=== PATIENT | female | born 1960 | race African-American/Black ===

== ENCOUNTER 2017-11-20 18:15 | Emergency (ER) | payer MEDICAID ==
[~2017-11-20] VITALS: Ht 172.7 cm; Wt 72.0 kg
[2017-11-20 19:03] LABS: CLARITY URINE CLEAR (CLEAR); COLOR URINE YELLOW (YELLOW); KETONES URINE NEGATIVE (NEGATIVE); LEUKOCYTE ESTERASE URINE NEGATIVE (NEGATIVE); NITRITE URINE NEGATIVE (NEGATIVE); OCCULT BLOOD URINE NEGATIVE (NEGATIVE); PH URINE 6.5 (4.5-8.0); PROTEIN URINE NEGATIVE (NEGATIVE); SPECIFIC GRAVITY URINE 1.011 (1.005-1.030); UROBILINOGEN URINE 0.2 E.U./dL (0.2-1.0)
[2017-11-20 20:10] VITALS: BP 118/87
== END 2017-11-20 20:10 | disposition home or self-care (01) ==
LOC: ER 18:15
DX: S29.012A Strain of muscle and tendon of back wall of thorax, initial encounter (principal); F17.200 Nicotine dependence, unspecified, uncomplicated; X58.XXXA Exposure to other specified factors, initial encounter; Y93.89 Activity, other specified; Y92.89 Other specified places as the place of occurrence of the external cause; Y99.8 Other external cause status
CPT/HCPCS: 81003; 99283

== ENCOUNTER 2022-06-21 09:15 | Emergency (ER) | payer MEDICAID ==
[~2022-06-21] VITALS: Ht 170.2 cm; Wt 59.0 kg
[2022-06-21] MEDS ORDERED: ACETAMINOPHEN WITH CODEINE 300/30MG TABLET PO NR (11:00)
[2022-06-21] MEDS ORDERED: AMOXICILLIN/POTASSIUM CLAVULANATE 875/125MG TAB PO NR (11:00)
[2022-06-21] MEDS ORDERED: KETOROLAC 30MG/ML VIAL IM NR (11:00)
[2022-06-21] MEDS ORDERED: AMOX1TAB16 MT (11:01)
[2022-06-21] MEDS ORDERED: D-ME473S50 PO (11:01)
[2022-06-21 11:12] VITALS: BP 124/81
== END 2022-06-21 11:22 | disposition home or self-care (01) ==
LOC: ER 09:19
DX: J32.9 Chronic sinusitis, unspecified (principal)
CPT/HCPCS: 71045; 96372; 99283; J1885